=== PATIENT | female | born 1970 | race Two or more races ===

== ENCOUNTER → 2024-03-21 | Outpatient (CLI) | payer OTHER, MEDICAID, SELFPAY ==
--- NOTE | 2024-03-21 | XR_ITS ---
Examination: Foot, right, 3 views Technique: AP, oblique, lateral views foot, 3 views Date and time of exam: March 21, 2024 0828 hrs. Comparison January 11, 2024 Indications: Post foot surgery one year ago with pain and stiffness Findings: Satisfactory position prosthetic right first metatarsal head Fusion interphalangeal joint first digit again noted with orthopedic pin Prominent osteopenia No fracture Small plantar posterior bony calcaneal spurs Impression: Postsurgical changes with satisfactory alignment
[2024-03-21 08:14] LABS: Collection Type, Urine Clean Catch
[2024-03-21 08:33] LABS: Basophils # (Auto) 0.1 Thou/mm3 (0.0-0.2); Basophils % (Auto) 1 % (0-2.5); Eosinophils # (Auto) 0.2 Thou/mm3 (0.0-0.5); Eosinophils % (Auto) 1 % (0-10); Hematocrit 45.9 % (36.0-46.0); Hemoglobin 14.7 g/dL (12.0-16.0); Immature Granulocytes % (Auto) 0 % (0-0); Immature Granulocytes Auto 0.03 Thou/mm3 (0.00-0.00); Lymphocytes # (Auto) 5.2 Thou/mm3 (1.0-4.8); Lymphocytes % (Auto) 42 % (10-50); Mean Corpuscular Hemoglobin 30.2 pg (25.0-35.0); Mean Corpuscular Volume 94 fL (80-100); Monocytes # (Auto) 1.1 Thou/mm3 (0.0-0.8); Monocytes % (Auto) 9 % (0-12); Neutrophils # (Auto) 5.9 Thou/mm3 (1.8-7.7); Neutrophils % (Auto) 47 % (37-80); Nucleated Red Blood Cell % 0 /100 WBC (0); Platelet Count 304 Thou/mm3 (140-440); RDW Standard Deviation 47.8 fL (36.4-46.3); Red Blood Count 4.86 Miln/mm3 (4.00-5.20); White Blood Count 12.5 Thou/mm3 (3.6-11.0)
[2024-03-21 08:46] LABS: Bacteria,Urine 4+; Bilirubin,Urine Negative (Negative); Blood,Urine Trace (Negative); Color,Urine Yellow (Lt Yel-Yel); Glucose, Urine Negative (Negative); Ketones,Urine Negative (Negative); Leukocyte Esterase,Urine Positive (Negative); Nitrite,Urine Negative (Negative); Protein,Urine 1+ (Neg - Trace); RBC,Urine 13 /hpf (0-3); Specific Gravity,Urine 1.019 (1.001-1.035); Squamous Epithelial Cell,Urine 2 /hpf (0-5); Urobilinogen,Urine Negative mg/dL (0.0-1.0); WBC,Urine 229 /hpf (0-5)
[2024-03-21 08:59] LABS: Creatinine,Random Urine 164 mg/dL (30-125); Protein Total, Random Urine 35 mg/dL (1-14)
[2024-03-21 08:59] LABS: Alanine Aminotransferase 17 U/L (10-49); Albumin, Serum 4.4 gm/dL (3.5-5.0); Albumin/Globulin Ratio 1.8 (1.2-2.2); Alkaline Phosphatase 105 U/L (46-116); Anion Gap 7 (7-16); Aspartate Amino Transferase 15 U/L (0-34); BUN/Creatinine Ratio 16 Ratio (12-20); Bilirubin,Total 0.8 mg/dL (0.3-1.2); Blood Urea Nitrogen 14 mg/dL (9-23); Calcium 9.4 mg/dL (8.3-10.6); Calcium (Corrected) 9.4 mg/dL (8.5-10.1); Carbon Dioxide 30.6 mMol/L (20.0-31.0); Chloride 104 mMol/L (98-107); Creatinine (Component) 0.9 mg/dL (0.6-1.3); Globulin 2.5 gm/dL (2.3-3.5); Glucose 149 mg/dL (74-106); Magnesium 1.4 mg/dL (1.6-2.6); Osmolality,Calculated 286 (275-295); Phosphorous 4.1 mg/dL (2.4-5.1); Sodium 142 mMol/L (136-145); Total Protein 6.9 gm/dL (5.7-8.2); eGFR > 60 See Note
[2024-03-21 09:03] LABS: Clarity,Urine Hazy (Clear/Hazy); Culture Indicated,Urine Yes
[2024-03-23 22:05] LABS: BK Virus DNA,QN PCR,Urine NOT DETECTED copies/mL
[2024-03-25 06:59] LABS: BK Virus DNA,QN PCR,Urine NOT DETECTED Log cps/mL
[2024-03-26 19:52] LABS: CMV DNA, Qn Real Time PCR NOT DETECTED; CMV Specimen Source WHOLE BLOOD
[2024-03-27 06:23] LABS: CMV DNA, Qn PCR NOT DETECTED Log IU/mL; Tacrolimus,highly sensitive* 5.5 mcg/L (5.0-20.0)
== END | disposition home or self-care (01) ==
LOC: CDIM 06:58 → COPL 07:47
PROVIDERS: Podiatrist; PCP Internal Medicine; Referring Provider Specialist; Visit Provider Radiology Diagnostic Radiology
DX: Z48.89 Encounter for other specified surgical aftercare (principal); Z94.0 Kidney transplant status; B25.9 Cytomegaloviral disease, unspecified; E83.41 Hypermagnesemia; E83.39 Other disorders of phosphorus metabolism; R80.9 Proteinuria, unspecified; N39.0 Urinary tract infection, site not specified
CPT/HCPCS: 36415; 73630; 80053; 80197; 81001; 82570; 83735; 84100; 84156; 85025; 87086; 87497; 87799

== ENCOUNTER → 2024-04-22 | Outpatient (CLI) | payer OTHER, MEDICAID, SELFPAY ==
[2024-04-22 08:06] LABS: Collection Type, Urine Clean Catch
[2024-04-22 08:43] LABS: Amorphous Crystals,Urine Present (Absent); Bacteria,Urine Rare; Bilirubin,Urine Negative (Negative); Blood,Urine Negative (Negative); Color,Urine Lt-Yellow (Lt Yel-Yel); Glucose, Urine Negative (Negative); Hyaline Casts,Urine < 1 /hpf (0-1); Ketones,Urine Negative (Negative); Leukocyte Esterase,Urine Positive (Negative); Nitrite,Urine Negative (Negative); PH,Urine 6.5 (5.0-7.0); Protein,Urine Negative (Neg - Trace); RBC,Urine 6 /hpf (0-3); Specific Gravity,Urine 1.014 (1.001-1.035); Squamous Epithelial Cell,Urine 1 /hpf (0-5); Urobilinogen,Urine Negative mg/dL (0.0-1.0); WBC,Urine 25 /hpf (0-5)
[2024-04-22 08:49] LABS: Basophils # (Auto) 0.1 Thou/mm3 (0.0-0.2); Basophils % (Auto) 1 % (0-2.5); Eosinophils # (Auto) 0.2 Thou/mm3 (0.0-0.5); Eosinophils % (Auto) 1 % (0-10); Hematocrit 44.5 % (36.0-46.0); Hemoglobin 14.4 g/dL (12.0-16.0); Immature Granulocytes % (Auto) 0 % (0-0); Immature Granulocytes Auto 0.06 Thou/mm3 (0.00-0.00); Lymphocytes # (Auto) 6.4 Thou/mm3 (1.0-4.8); Lymphocytes % (Auto) 39 % (10-50); Mean Corpuscular HGB Conc 32.4 g/dl (31.0-37.0); Mean Corpuscular Hemoglobin 30.1 pg (25.0-35.0); Mean Corpuscular Volume 93 fL (80-100); Monocytes # (Auto) 1.3 Thou/mm3 (0.0-0.8); Monocytes % (Auto) 8 % (0-12); Neutrophils # (Auto) 8.3 Thou/mm3 (1.8-7.7); Neutrophils % (Auto) 51 % (37-80); Nucleated Red Blood Cell # 0.02 Thou/mm3 (0.00-0.00); Nucleated Red Blood Cell % 0 /100 WBC (0); Platelet Count 286 Thou/mm3 (140-440); RDW Standard Deviation 46.8 fL (36.4-46.3); Red Blood Count 4.78 Miln/mm3 (4.00-5.20); White Blood Count 16.3 Thou/mm3 (3.6-11.0)
[2024-04-22 08:50] LABS: Clarity,Urine Hazy (Clear/Hazy); Culture Indicated,Urine Yes
[2024-04-22 09:06] LABS: Creatinine,Random Urine 81 mg/dL (30-125); Protein Total, Random Urine 19 mg/dL (1-14)
[2024-04-22 09:07] LABS: Alanine Aminotransferase 14 U/L (10-49); Albumin, Serum 4.4 gm/dL (3.5-5.0); Albumin/Globulin Ratio 1.8 (1.2-2.2); Alkaline Phosphatase 111 U/L (46-116); Anion Gap 11 (7-16); Aspartate Amino Transferase 14 U/L (0-34); BUN/Creatinine Ratio 13 Ratio (12-20); Bilirubin,Total 0.7 mg/dL (0.3-1.2); Blood Urea Nitrogen 12 mg/dL (9-23); Carbon Dioxide 30.7 mMol/L (20.0-31.0); Chloride 103 mMol/L (98-107); Creatinine (Component) 0.9 mg/dL (0.6-1.3); Globulin 2.5 gm/dL (2.3-3.5); Glucose 148 mg/dL (74-106); Magnesium 1.4 mg/dL (1.6-2.6); Osmolality,Calculated 291 (275-295); Phosphorous 5.1 mg/dL (2.4-5.1); Potassium 3.7 mMol/L (3.4-5.1); Sodium 145 mMol/L (136-145); Total Protein 6.9 gm/dL (5.7-8.2); eGFR > 60 See Note
[2024-04-24 13:49] LABS: BK Virus DNA,QN PCR,Urine NOT DETECTED copies/mL
[2024-04-25 06:55] LABS: BK Virus DNA,QN PCR,Urine NOT DETECTED Log cps/mL
[2024-04-27 22:08] LABS: CMV DNA, Qn Real Time PCR NOT DETECTED; CMV Specimen Source BLOOD
[2024-04-29 06:59] LABS: CMV DNA, Qn PCR NOT DETECTED Log IU/mL
== END | disposition home or self-care (01) ==
LOC: COPL 06:49
PROVIDERS: PCP Internal Medicine; Referring Provider Specialist; Visit Provider Specialist
DX: Z94.0 Kidney transplant status (principal); B25.9 Cytomegaloviral disease, unspecified; E83.41 Hypermagnesemia; E83.39 Other disorders of phosphorus metabolism; R80.9 Proteinuria, unspecified; N39.0 Urinary tract infection, site not specified
CPT/HCPCS: 36415; 80053; 80197; 81001; 82570; 83735; 84100; 84156; 85025; 87086; 87497; 87799

== ENCOUNTER → 2024-05-10 | Outpatient (CLI) | payer OTHER, MEDICAID, SELFPAY ==
[2024-05-10 08:19] LABS: Collection Type, Urine Clean Catch
[2024-05-10 08:54] LABS: Amorphous Crystals,Urine Present (Absent); Bacteria,Urine 1+; Bilirubin,Urine Negative (Negative); Blood,Urine Negative (Negative); Clarity,Urine Turbid (Clear/Hazy); Color,Urine Lt-Yellow (Lt Yel-Yel); Glucose, Urine Negative (Negative); Ketones,Urine Negative (Negative); Leukocyte Esterase,Urine Positive (Negative); Nitrite,Urine Negative (Negative); Protein,Urine Negative (Neg - Trace); RBC,Urine 5 /hpf (0-3); Specific Gravity,Urine 1.011 (1.001-1.035); Squamous Epithelial Cell,Urine 2 /hpf (0-5); Urobilinogen,Urine Negative mg/dL (0.0-1.0); WBC,Urine 54 /hpf (0-5)
[2024-05-10 09:01] LABS: Culture Indicated,Urine Yes
[2024-05-10 09:06] LABS: Basophils # (Auto) 0.1 Thou/mm3 (0.0-0.2); Basophils % (Auto) 1 % (0-2.5); Eosinophils # (Auto) 0.3 Thou/mm3 (0.0-0.5); Eosinophils % (Auto) 2 % (0-10); Hematocrit 43.8 % (36.0-46.0); Hemoglobin 14.1 g/dL (12.0-16.0); Immature Granulocytes % (Auto) 0 % (0-0); Immature Granulocytes Auto 0.05 Thou/mm3 (0.00-0.00); Lymphocytes # (Auto) 5.3 Thou/mm3 (1.0-4.8); Lymphocytes % (Auto) 37 % (10-50); Mean Corpuscular HGB Conc 32.2 g/dl (31.0-37.0); Mean Corpuscular Hemoglobin 30.4 pg (25.0-35.0); Mean Corpuscular Volume 94 fL (80-100); Monocytes # (Auto) 1.2 Thou/mm3 (0.0-0.8); Monocytes % (Auto) 8 % (0-12); Neutrophils # (Auto) 7.6 Thou/mm3 (1.8-7.7); Neutrophils % (Auto) 53 % (37-80); Nucleated Red Blood Cell % 0 /100 WBC (0); Platelet Count 281 Thou/mm3 (140-440); RDW Standard Deviation 48.2 fL (36.4-46.3); Red Blood Count 4.64 Miln/mm3 (4.00-5.20); White Blood Count 14.5 Thou/mm3 (3.6-11.0)
[2024-05-10 09:22] LABS: Creatinine,Random Urine 51 mg/dL (30-125); Protein Total, Random Urine 13 mg/dL (1-14)
[2024-05-10 09:31] LABS: Alanine Aminotransferase 15 U/L (10-49); Albumin, Serum 4.1 gm/dL (3.5-5.0); Albumin/Globulin Ratio 1.5 (1.2-2.2); Alkaline Phosphatase 95 U/L (46-116); Anion Gap 9 (7-16); Aspartate Amino Transferase 17 U/L (0-34); BUN/Creatinine Ratio 13 Ratio (12-20); Blood Urea Nitrogen 12 mg/dL (9-23); Calcium 8.9 mg/dL (8.3-10.6); Calcium (Corrected) 8.9 mg/dL (8.5-10.1); Carbon Dioxide 30.6 mMol/L (20.0-31.0); Chloride 105 mMol/L (98-107); Creatinine (Component) 0.9 mg/dL (0.6-1.3); Globulin 2.7 gm/dL (2.3-3.5); Glucose 139 mg/dL (74-106); Magnesium 1.4 mg/dL (1.6-2.6); Osmolality,Calculated 290 (275-295); Phosphorous 4.6 mg/dL (2.4-5.1); Potassium 4.2 mMol/L (3.4-5.1); Sodium 145 mMol/L (136-145); Total Protein 6.8 gm/dL (5.7-8.2); eGFR > 60 See Note
[2024-05-13 07:05] LABS: BK Virus DNA,QN PCR,Urine NOT DETECTED copies/mL
[2024-05-14 07:08] LABS: BK Virus DNA,QN PCR,Urine NOT DETECTED Log cps/mL
[2024-05-15 07:05] LABS: CMV DNA, Qn Real Time PCR NOT DETECTED; CMV Specimen Source WHOLE BLOOD LAV
[2024-05-16 07:00] LABS: CMV DNA, Qn PCR NOT DETECTED Log IU/mL; Tacrolimus,highly sensitive* 3.5 mcg/L (5.0-20.0)
== END | disposition home or self-care (01) ==
LOC: COPL 07:08
PROVIDERS: PCP Internal Medicine; Referring Provider Specialist; Visit Provider Specialist
DX: N39.0 Urinary tract infection, site not specified (principal); R80.9 Proteinuria, unspecified; Z94.0 Kidney transplant status; B25.9 Cytomegaloviral disease, unspecified; E83.41 Hypermagnesemia; E83.39 Other disorders of phosphorus metabolism
CPT/HCPCS: 36415; 80053; 80197; 81001; 82570; 83735; 84100; 84156; 85025; 87086; 87497; 87799

== ENCOUNTER → 2024-05-30 | Outpatient (CLI) | payer OTHER, MEDICAID, SELFPAY ==
--- NOTE | 2024-05-30 | XR_ITS ---
Examination: Foot, right, 3 views Technique: AP, oblique, lateral views foot, 3 views Date and time of exam: May 30, 2024 0729 hrs. Comparison March 21, 2024 Indications: Foot pain post foot surgery 2 years ago Findings: Severe osteopenia Prosthetic right first metatarsal head Fusion interphalangeal joint first digit with orthopedic and No colton cortical bone destruction Small plantar posterior bony calcaneal spurs Soft tissue vascular calcification Impression: Postoperative changes as above No acute fracture No colton cortical bone destruction
== END | disposition home or self-care (01) ==
LOC: CDIM 06:46
PROVIDERS: Referring Provider Podiatrist; Visit Provider Podiatrist
DX: M96.0 Pseudarthrosis after fusion or arthrodesis (principal)
CPT/HCPCS: 73630

== ENCOUNTER → 2024-06-03 | Outpatient (CLI) | payer OTHER, MEDICAID, SELFPAY ==
--- NOTE | 2024-06-03 10:27 | XR_ITS ---
Examination: Screening digital mammography, bilateral Computer aided detection 3-D breast Tomosynthesis, bilateral Date and time of exam: 06/03/2024, 10:31 AM Comparisons: 05/03/2023 Indications: Screening Technique: Nonmagnified MLO, CC views of the breasts to been obtained, reconstructed from 3-D Tomosynthesis images. R2 computer aided detection program utilized for evaluation of suspicious masses and/or abnormal calcifications. 3-D Tomosynthesis images obtained. Technologist: Findings: There are scattered areas of fibroglandular density. No evidence of abnormal masses or suspicious calcifications. Stable left axillary clips. Impression: BI-RADS category 2: Benign findings Recommend 1 year follow-up mammogram
== END | disposition home or self-care (01) ==
LOC: CDIM 10:22
PROVIDERS: PCP Internal Medicine; Referring Provider Internal Medicine; Visit Provider Internal Medicine
DX: Z12.31 Encounter for screening mammogram for malignant neoplasm of breast (principal); R92.323 Mammographic fibroglandular density, bilateral breasts
CPT/HCPCS: 77063; 77067

== ENCOUNTER → 2024-06-04 | Outpatient (CLI) | payer OTHER, MEDICAID, SELFPAY ==
[2024-06-04 07:59] LABS: Collection Type, Urine Clean Catch; RBC,Urine 0 /hpf (0-3)
[2024-06-04 08:37] LABS: Bacteria,Urine Rare; Bilirubin,Urine Negative (Negative); Blood,Urine Negative (Negative); Clarity,Urine Clear (Clear/Hazy); Color,Urine Lt-Yellow (Lt Yel-Yel); Glucose, Urine Negative (Negative); Ketones,Urine Negative (Negative); Leukocyte Esterase,Urine Positive (Negative); Nitrite,Urine Negative (Negative); Protein,Urine Negative (Neg - Trace); Specific Gravity,Urine 1.013 (1.001-1.035); Squamous Epithelial Cell,Urine 1 /hpf (0-5); Urobilinogen,Urine Negative mg/dL (0.0-1.0); WBC,Urine 76 /hpf (0-5)
[2024-06-04 08:39] LABS: Basophils # (Auto) 0.1 Thou/mm3 (0.0-0.2); Basophils % (Auto) 1 % (0-2.5); Eosinophils # (Auto) 0.3 Thou/mm3 (0.0-0.5); Eosinophils % (Auto) 2 % (0-10); Hematocrit 41.3 % (36.0-46.0); Hemoglobin 13.4 g/dL (12.0-16.0); Immature Granulocytes % (Auto) 0 % (0-0); Immature Granulocytes Auto 0.04 Thou/mm3 (0.00-0.00); Lymphocytes # (Auto) 6.1 Thou/mm3 (1.0-4.8); Lymphocytes % (Auto) 43 % (10-50); Mean Corpuscular HGB Conc 32.4 g/dl (31.0-37.0); Mean Corpuscular Hemoglobin 30.4 pg (25.0-35.0); Mean Corpuscular Volume 94 fL (80-100); Monocytes # (Auto) 1.2 Thou/mm3 (0.0-0.8); Monocytes % (Auto) 9 % (0-12); Neutrophils # (Auto) 6.5 Thou/mm3 (1.8-7.7); Neutrophils % (Auto) 46 % (37-80); Nucleated Red Blood Cell % 0 /100 WBC (0); Platelet Count 309 Thou/mm3 (140-440); Red Blood Count 4.41 Miln/mm3 (4.00-5.20); White Blood Count 14.1 Thou/mm3 (3.6-11.0)
[2024-06-04 08:44] LABS: Creatinine,Random Urine 50 mg/dL (30-125); Protein Total, Random Urine 19 mg/dL (1-14)
[2024-06-04 09:06] LABS: Culture Indicated,Urine Yes
[2024-06-04 09:07] LABS: Alanine Aminotransferase 12 U/L (10-49); Albumin/Globulin Ratio 1.7 (1.2-2.2); Anion Gap 10 (7-16); Aspartate Amino Transferase 14 U/L (0-34); BUN/Creatinine Ratio 15 Ratio (12-20); Bilirubin,Total 0.7 mg/dL (0.3-1.2); Blood Urea Nitrogen 12 mg/dL (9-23); Calcium 8.3 mg/dL (8.3-10.6); Calcium (Corrected) 8.3 mg/dL (8.5-10.1); Carbon Dioxide 30.5 mMol/L (20.0-31.0); Chloride 105 mMol/L (98-107); Creatinine (Component) 0.8 mg/dL (0.6-1.3); Globulin 2.4 gm/dL (2.3-3.5); Glucose 158 mg/dL (74-106); Magnesium 1.4 mg/dL (1.6-2.6); Osmolality,Calculated 291 (275-295); Phosphorous 4.4 mg/dL (2.4-5.1); Potassium 3.7 mMol/L (3.4-5.1); Sodium 145 mMol/L (136-145); Total Protein 6.4 gm/dL (5.7-8.2); eGFR > 60 See Note
[2024-06-04 09:25] LABS: Alkaline Phosphatase 98 U/L (46-116)
[2024-06-06 19:50] LABS: BK Virus DNA,QN PCR,Urine NOT DETECTED copies/mL
[2024-06-07 06:26] LABS: BK Virus DNA,QN PCR,Urine NOT DETECTED Log cps/mL
[2024-06-10 15:35] LABS: CMV DNA, Qn Real Time PCR NOT DETECTED; CMV Specimen Source WOLE BLOOD LAV
[2024-06-11 06:37] LABS: CMV DNA, Qn PCR NOT DETECTED Log IU/mL; Tacrolimus,highly sensitive* 3.5 mcg/L (5.0-20.0)
== END | disposition home or self-care (01) ==
LOC: COPL 07:02
PROVIDERS: PCP Internal Medicine; Referring Provider Specialist; Visit Provider Specialist
DX: B25.9 Cytomegaloviral disease, unspecified (principal); E83.41 Hypermagnesemia; E83.39 Other disorders of phosphorus metabolism; Z94.0 Kidney transplant status; R80.9 Proteinuria, unspecified; N39.0 Urinary tract infection, site not specified
CPT/HCPCS: 36415; 80053; 80197; 81001; 82570; 83735; 84100; 84156; 85025; 87086; 87497; 87799

== ENCOUNTER → 2024-06-13 | Outpatient (CLI) | payer OTHER, MEDICAID, SELFPAY ==
[2024-06-13 08:26] LABS: Collection Type, Urine Clean Catch
[2024-06-13 08:57] LABS: Basophils # (Auto) 0.1 Thou/mm3 (0.0-0.2); Basophils % (Auto) 1 % (0-2.5); Eosinophils # (Auto) 0.3 Thou/mm3 (0.0-0.5); Eosinophils % (Auto) 2 % (0-10); Hematocrit 43.3 % (36.0-46.0); Immature Granulocytes % (Auto) 0 % (0-0); Immature Granulocytes Auto 0.07 Thou/mm3 (0.00-0.00); Lymphocytes % (Auto) 44 % (10-50); Mean Corpuscular HGB Conc 32.3 g/dl (31.0-37.0); Mean Corpuscular Hemoglobin 30.2 pg (25.0-35.0); Mean Corpuscular Volume 94 fL (80-100); Monocytes # (Auto) 1.4 Thou/mm3 (0.0-0.8); Monocytes % (Auto) 8 % (0-12); Neutrophils # (Auto) 7.8 Thou/mm3 (1.8-7.7); Neutrophils % (Auto) 46 % (37-80); Nucleated Red Blood Cell % 0 /100 WBC (0); Platelet Count 323 Thou/mm3 (140-440); RDW Standard Deviation 48.1 fL (36.4-46.3); Red Blood Count 4.63 Miln/mm3 (4.00-5.20); White Blood Count 17.1 Thou/mm3 (3.6-11.0)
[2024-06-13 08:57] LABS: Bacteria,Urine 2+; Bilirubin,Urine Negative (Negative); Blood,Urine Trace (Negative); Color,Urine Yellow (Lt Yel-Yel); Glucose, Urine Negative (Negative); Ketones,Urine Negative (Negative); Leukocyte Esterase,Urine Positive (Negative); Nitrite,Urine Negative (Negative); Protein,Urine Trace (Neg - Trace); RBC,Urine 13 /hpf (0-3); Specific Gravity,Urine 1.019 (1.001-1.035); Squamous Epithelial Cell,Urine 7 /hpf (0-5); Urobilinogen,Urine Negative mg/dL (0.0-1.0); WBC,Urine 411 /hpf (0-5)
[2024-06-13 09:11] LABS: Alanine Aminotransferase 11 U/L (10-49); Albumin, Serum 4.2 gm/dL (3.5-5.0); Albumin/Globulin Ratio 1.7 (1.2-2.2); Alkaline Phosphatase 103 U/L (46-116); Anion Gap 10 (7-16); Aspartate Amino Transferase 11 U/L (0-34); BUN/Creatinine Ratio 18 Ratio (12-20); Bilirubin,Total 0.9 mg/dL (0.3-1.2); Blood Urea Nitrogen 14 mg/dL (9-23); Carbon Dioxide 29.7 mMol/L (20.0-31.0); Chloride 105 mMol/L (98-107); Creatinine (Component) 0.8 mg/dL (0.6-1.3); Globulin 2.5 gm/dL (2.3-3.5); Glucose 165 mg/dL (74-106); Magnesium 1.4 mg/dL (1.6-2.6); Osmolality,Calculated 293 (275-295); Phosphorous 3.8 mg/dL (2.4-5.1); Potassium 3.4 mMol/L (3.4-5.1); Sodium 145 mMol/L (136-145); Total Protein 6.7 gm/dL (5.7-8.2); eGFR > 60 See Note
[2024-06-13 09:12] LABS: Creatinine,Random Urine 113 mg/dL (30-125); Protein Total, Random Urine 27 mg/dL (1-14)
[2024-06-13 09:31] LABS: Clarity,Urine Hazy (Clear/Hazy); Culture Indicated,Urine Yes
[2024-06-13 12:13] LABS: Lymphocytes # (Auto) 7.5 Thou/mm3 (1.0-4.8)
[2024-06-16 07:04] LABS: BK Virus DNA,QN PCR,Urine NOT DETECTED copies/mL
[2024-06-17 07:05] LABS: BK Virus DNA,QN PCR,Urine NOT DETECTED Log cps/mL
[2024-06-18 08:48] LABS: CMV DNA, Qn Real Time PCR NOT DETECTED; CMV Specimen Source WHOLE BLOOD
[2024-06-19 06:45] LABS: CMV DNA, Qn PCR NOT DETECTED Log IU/mL; Tacrolimus,highly sensitive* 4.8 mcg/L (5.0-20.0)
== END | disposition home or self-care (01) ==
LOC: COPL 07:05
PROVIDERS: Referring Provider Specialist; Visit Provider Specialist
DX: E83.41 Hypermagnesemia (principal); E83.39 Other disorders of phosphorus metabolism; B25.9 Cytomegaloviral disease, unspecified; R80.9 Proteinuria, unspecified; N39.0 Urinary tract infection, site not specified; Z94.0 Kidney transplant status
CPT/HCPCS: 36415; 80053; 80197; 81001; 82570; 83735; 84100; 84156; 85025; 87086; 87497; 87799

== ENCOUNTER → 2024-06-25 | Outpatient (CLI) | payer OTHER, MEDICAID, SELFPAY ==
--- NOTE | 2024-06-25 | XR_ITS ---
Examination: Knee bilateral, 6 views Technique: Knee AP, lateral, oblique, each knee total 6 views Date and time of exam: June 26, 2019 5071 hrs. Indications: Bilateral knee pain beginning 3 weeks ago. Findings: Moderate osteopenia No fracture or dislocation involving either knee Bilateral mild tricompartment osteoarthritis Meniscus calcification Impression: Bilateral mild tricompartment osteoarthritis
== END | disposition home or self-care (01) ==
PROVIDERS: PCP Internal Medicine; Referring Provider Internal Medicine; Visit Provider Internal Medicine
DX: M17.0 Bilateral primary osteoarthritis of knee (principal)
CPT/HCPCS: 73562

== ENCOUNTER 2024-08-08 09:18 | Outpatient (AMB) | payer OTHER, MEDICAID, SELFPAY ==
--- NOTE | 2024-08-08 09:31 | XR_ITS ---
Examination: Bilateral knees 2 views Right lateral knee left lateral knee 2 views Bilateral axial knees single view TECHNIQUE: Bilateral AP knees standing single view, bilateral PA knees standing single view flexion Standing right lateral knee left lateral knee 2 views Bilateral axial knees single view total 5 views Exam date and time: August 08, 2024 1007 hours INDICATIONS: Bilateral knee pain 2 years worse the last 2 months FINDINGS: Prominent osteopenia Mild to moderate narrowing medial joint spaces Mild osteoarthritis patellofemoral joints No fractures or dislocations IMPRESSION: Mild to moderate narrowing medial joint spaces Mild osteoarthritis patellofemoral joint
[2024-08-08 09:32] VITALS: BP 142/95; PULSE 88; RESP 18; TEMP 36.7; O2SAT 97; BMI 30.4
--- NOTE | 2024-08-08 09:32 | ORTHONT_ITS ---
Vital signs 08/08/24 09:32 Height 1.57 m Height Method Stated Weight 74.984 kg Weight Measurement Method Standing Scale BMI 30.4 BP 142/95 H Blood Pressure Source Automatic Cuff Blood Pressure Location Left Upper Arm Position Sitting Respiration 18 Pulse 88 Pulse Source Monitor Temp 98.0 F Temp Source Temporal Artery Scan Pulse Oximetry (%) 97 Oxygen Delivery Method Room Air Med/Allergies Allergies & Medications Allergies codeine Allergy (Severe, Verified 08/08/24 09:34) DIFF BREATHING hydrocodone bit Allergy (Severe, Verified 08/08/24 09:34) Rash Penicillins Allergy (Intermediate, Verified 08/08/24 09:34) HIVES, RASH vancomycin Allergy (Intermediate, Verified 08/08/24 09:34) Hives promethazine (From Phenergan) Allergy (Verified 08/08/24 09:34) ibuprofen Adverse Reaction (Intermediate, Verified 08/08/24 09:34) KIDNEY FAILURE Medication Reconciliation glipizide 5 mg tablet 5 mg PO QID 11/10/20 [History Confirmed 08/08/24] aspirin 81 mg tablet 81 mg PO QDAY 08/18/21 [History Confirmed 08/08/24] atorvastatin 40 mg tablet (Lipitor) 1 tab PO HS 08/18/21 [History Confirmed 08/08/24] cinacalcet 30 mg tablet (Sensipar) 1 tab PO QDAY 08/18/21 [History Confirmed 08/08/24] clonidine 0.3 mg/24 hr weekly transdermal patch See Rx Instructions .Route .COMPLEX 08/18/21 [History Confirmed 08/08/24] clonidine HCl 0.3 mg tablet 1 tab PO HS 08/18/21 [History Confirmed 08/08/24] insulin aspart U-100 100 unit/mL (3 mL) subcutaneous pen (Novolog FlexPen U-100 Insulin aspart) 14 unit subcut TID 08/18/21 [History Confirmed 08/08/24] insulin glargine 100 unit/mL (3 mL) subcutaneous pen (Lantus Solostar U-100 Insulin) See Rx Instructions .Route .COMPLEX 08/18/21 [History Confirmed 08/08/24] linaclotide 290 mcg capsule (Linzess) 1 cap PO QDAY PRN Constipation 08/18/21 [History Confirmed 08/08/24] mycophenolate sodium 180 mg tablet,delayed release (Myfortic) 1 tab PO BID 08/18/21 [History Confirmed 08/08/24] pantoprazole 40 mg granules delayed-release for susp in packet (Protonix) 40 mg PO HS 08/18/21 [History Confirmed 08/08/24] prednisone 5 mg tablet 1 tab PO QDAY 08/18/21 [History Confirmed 08/08/24] tacrolimus 0.5 mg capsule, immediate-release (Prograf) 5 mg PO BID 08/18/21 [History Confirmed 08/08/24] amlodipine 5 mg tablet 5 mg PO QDAY 02/22/22 [History Confirmed 08/08/24] carvedilol 25 mg tablet 25 mg PO DAILY PRN Hypertension 02/22/22 [History Confirmed 08/08/24] docusate sodium 100 mg capsule (Colace) 100 mg PO BID #60 caps 09/02/22 [Rx Confirmed 08/08/24] psyllium husk 3.4 gram oral powder packet (Metamucil Fiber Singles) 1 packet PO BID #60 ea 09/02/22 [Rx Confirmed 08/08/24] Exam Exam Patient is in no acute distress and is cooperative with the examination today. Breathing is nonlabored. Patient has a normal mood and affect. Bilateral extremities were evaluated and demonstrates sensation intact to light touch. Palpable pedal pulses are present. No significant edema is present. Bilateral hips were examined. The patient has no pain with log roll of the hips. Internal rotation to 30 degrees and external rotation to 30 degrees is painless. Negative FADIR. Right knee was examined today. The right knee is in reasonable alignment. Range of motion from 0-120 degrees. Knee is stable to varus and valgus as well as AP translation with <5mm. Patient has a negative McMurrays. There is no pain with patellofemoral compression and no crepitus noted. The knee is nontender to palpation. Left knee was examined today. The left knee is in varus alignment. Range of motion from 0-115 degrees. Knee is stable to varus and valgus as well as AP translation with <5mm. Patient has a negative McMurrays. There is no pain with patellofemoral compression and no crepitus noted. The knee is tender to palpation medially. Nonweightbearing x-rays demonstrates mild arthritis and joint space narrowing bilaterally Assessment and Plan Problem List (1) Degenerative arthritis of knee, bilateral: Status: Acute Plan: Patient is a pleasant 54-year-old female with bilateral knee pain and bilateral knee arthritis. We discussed different treatment options. She would like a cortisone injection today Recommend knee cortisone injection as patient would like to proceed with conservative treatment at this time. The risks and benefits of the procedure were reviewed with the patient and patient gave verbal consent to continue with the procedure. Procedure: performed by Dr. Francis Using sterile technique the left knee was thoroughly prepped with alcohol, and approximately 1 cc of Kenalog 40 mg/mL and 4 cc of 1% lidocaine was injected without resistance into the medial tibial femoral joint space. The patient tolerated the procedure. Recommend knee cortisone injection as patient would like to proceed with conservative treatment at this time. The risks and benefits of the procedure were reviewed with the patient and patient gave verbal consent to continue with the procedure. Procedure: performed by Dr. Francis Using sterile technique the Right knee was thoroughly prepped with alcohol, and approximately 1 cc of Kenalog 40 mg/mL and 4 cc of 1% lidocaine was injected without resistance into the medial tibial femoral joint space. The patient to lerated the procedure. Office Procedures GNS Level of Care Nursing/Assessment Patient Status: Initial/New Patient Nursing Assessment/Reassesment: Medication Reconciliation, Update PMH in EMR and Vital Signs Coordination of Care: Complex Care and Chronic Disease 1-5, Education Complex Pt/Fam, Consent,records obtained, informed consent, 1 Ins Authorization, Lab and Imaging orders, Results/Orders obtained and Staff clarify orders New Patient Charge New Patient Point Assignment: 1124 New Patient Point Charge: CREPE MAKER Level 4 ([id number]) Surgical Proc/IM SQ injection Major Surgical Procedure: Yes (BILATERAL KNEE INJECTION) Medication Given Medication Given Medication Given: Yes Documented Dose Given: 4 Medication Given Medication Given Medication Given: Yes Documented Dose Given: 4 Route: Infiitration Medication Given Medication Given Medication Given: Yes Documented Dose Given: 1 Route: Infiitration Medication Given Medication Given Medication Given: Yes Documented Dose Given: 1 Route: Infiitration Office Meds Xylocaine 10 mg/mL (1 %) injection solution Performing Provider: Christopher Francis MD Performing Location: [facility] Administered by: Christopher Francis MD on 08/08/24 10:59 Dose Route Admin Location Dispensed Lot Number Expiration Date [facility] Continuous Loft Operator 20 mL Infiltration 20 mL [id number] 10/08/27 05118-649-44 [employer] Xylocaine 10 mg/mL (1 %) injection solution Performing Provider: Chritsopher Francis MD Performing Location: [facility] Administered by: Christopher Francis MD on 08/08/24 10:59 Dose Route Admin Location Dispensed Lot Number Expiration Date [facility] Continuous Loft Operator 20 mL Infiltration 20 mL [id number] 11/06/26 11536-526-31 [employer]ABI triamcinolone acetonide 40 mg/mL suspension for injection Performing Provider: Christopher Francis MD Performing Location: [facility] Administered by: Christopher Francis MD on 08/08/24 10:59 Dose Route Admin Location Dispensed Lot Number Expiration Date [facility] Continuous Loft Operator 40 mg intra-articular KNEE 1 mL [id number] 02/06/26 2995-2477-67 TE MD PARENTERAL triamcinolone acetonide 40 mg/mL suspension for injection Performing Provider: Christopher Francis MD Performing Location: [facility] Administered by: Christopher Francis MD on 08/08/24 10:59 Dose Route Admin Location Dispensed Lot Number Expiration Date [facility] Continuous Loft Operator 40 mg intra-articular KNEE 1 mL [id number] 11/06/25 [address]-0 Tyrone ROMAN MA Intake Visit Data Collection New Patient or Established: New Patient (never been to [facility] [place] Reason for Visit:: BL KNEE PAIN Seen by Clinical Staff ONLY (RN/MA): No PCP or OBGYN visit in last 3 months: Yes Hx Now: No Do You Feel Safe at Home: Yes Authorities Contacted: N/A Questionairres Past Medical History Past Medical History Have you ever been diagnosed with any of the following: Neurological Problems Cerebrovascular Accident (CVA): Yes Seizures: No Subdural Hematoma: Yes Head Trauma: Yes Cardiology Problems Hypercholesterolemia: Yes Congestive Heart Failure: Yes Edema: No Cellulitis: No Hypertension: Yes Varicose Veins: No Respiratory Problems Chronic Obstructive Pulmonary Disease (COPD): No Asthma: No Tuberculosis: No Pulmonary Embolism: No Sleep Apnea: No Smoking: No Smoking Exposure: No Stomache/Intestinal Problems Hepatitis: No Obesity: Yes Genital/Urinary Problems Renal Disease: Yes (HAD KIDNEY TRANSPLANT) Dialysis: Yes Reproductive Problems Previous Pregnancies: Yes Musculoskeletal Problems Arthritis: Yes Endocrine Problems Diabetes Mellitus Type 1: No Diabetes Mellitus Type 2: Yes Blood Problems Sickle Cell Disease: No Clotting Problems: Yes (BLOOD CLOTS RIGHT LEG HOSP 08/29) Other Problems Hospitalization: Yes Shingles: No Falls: No Blood Transfusions: No Blood Transfusion Reaction: No Anesthesia Reactions: No Organ Transplant: Yes Chemotherapy: No Radiation Therapy: No MRSA: No Chicken Pox: Yes Measles: No Mumps: No Cancer: No Surgical History Hysterectomy: Yes (GENA WITH LUI SALPING) Pacemaker: No Subjective Visit Visit for: new patient and knee (BILATERAL) Immunization / Flu Flu Vaccine in the Last 12 Months: No Flu Vaccine Exclusion Criteria: No Exclusion Criteria History of Present Illness Chief complaint: Left knee pain Patient is a 54-year-old female with bilateral knee pain worse on the left. This been ongoing for 2 years but has been worse in the last 2 months. She does have a history of a kidney transplant and is on immunosuppressants. She reports the left knee pain is worse and is starting to affect her. She has not had any injections. She can only take Tylenol because of the transplant Pain Pain level (0-10): 8 Pain duration: CONSTANT Pain location: inside (medial), outside (lateral), anterior and posterior Pain quality: sharp, dull and aching Pain timing: increases with activity Ambulatory data Ambulatory device: none Treatments Number of previous injections: 0 Improvement with previous injections: No Number of Physical Therapy sessions: 0 Improvement with PT: No Improvement with NSAIDS: no Review of Systems Review of Systems: All systems negative unless otherwise noted in HPI.
== END 2024-08-08 10:12 | disposition home or self-care (01) ==
LOC: HODSRG 09:18
PROVIDERS: PCP Internal Medicine; Referring Provider Internal Medicine; Supervising Provider Orthopaedic Surgery Adult Reconstructive Orthopaedic Surgery; Visit Provider Orthopaedic Surgery Adult Reconstructive Orthopaedic Surgery
DX: M17.0 Bilateral primary osteoarthritis of knee (principal); M25.562 Pain in left knee; M25.561 Pain in right knee; I11.0 Hypertensive heart disease with heart failure; I50.9 Heart failure, unspecified; E78.00 Pure hypercholesterolemia, unspecified; Z86.73 Personal history of transient ischemic attack (TIA), and cerebral infarction without residual deficits; E11.9 Type 2 diabetes mellitus without complications; Z94.0 Kidney transplant status
CPT/HCPCS: 20610; 73564; 99204; J3301; J3490; G0463

== ENCOUNTER → 2024-09-04 | Outpatient (CLI) | payer OTHER, MEDICAID, SELFPAY ==
--- NOTE | 2024-09-04 | XR_ITS ---
Examination: Foot, I, 3 views Technique: AP, oblique, lateral views foot, 3 views Date and time of exam: August 27, 2024 0803 hours INDICATIONS: Postop foot surgery FINDINGS: Prosthetic first metatarsal head with satisfactory alignment Fusion interphalangeal joint first digit with satisfactory alignment Moderate osteopenia IMPRESSION: Postsurgical changes as above with satisfactory alignment
[2024-09-04 08:03] LABS: Collection Type, Urine Clean Catch
[2024-09-04 08:31] LABS: Basophils # (Auto) 0.1 Thou/mm3 (0.0-0.2); Basophils % (Auto) 1 % (0-2.5); Eosinophils # (Auto) 0.2 Thou/mm3 (0.0-0.5); Eosinophils % (Auto) 1 % (0-10); Hematocrit 44.4 % (36.0-46.0); Hemoglobin 14.3 g/dL (12.0-16.0); Immature Granulocytes % (Auto) 0 % (0-0); Immature Granulocytes Auto 0.04 Thou/mm3 (0.00-0.00); Lymphocytes # (Auto) 5.4 Thou/mm3 (1.0-4.8); Lymphocytes % (Auto) 39 % (10-50); Mean Corpuscular HGB Conc 32.2 g/dl (31.0-37.0); Mean Corpuscular Hemoglobin 30.6 pg (25.0-35.0); Mean Corpuscular Volume 95 fL (80-100); Monocytes % (Auto) 7 % (0-12); Neutrophils # (Auto) 7.3 Thou/mm3 (1.8-7.7); Neutrophils % (Auto) 52 % (37-80); Nucleated Red Blood Cell % 0 /100 WBC (0); Platelet Count 293 Thou/mm3 (140-440); RDW Standard Deviation 50.1 fL (36.4-46.3); Red Blood Count 4.67 Miln/mm3 (4.00-5.20)
[2024-09-04 08:40] LABS: Creatinine,Random Urine 95 mg/dL (30-125)
[2024-09-04 08:40] LABS: Glucose Estimated Average 148 mg/dL (80-131); Hemoglobin A1C 6.8 % Hgb (4.8-6.0)
[2024-09-04 08:46] LABS: Parathyroid Hormone Intact 114.7 pg/ml (18.5-88.0)
[2024-09-04 08:49] LABS: Bacteria,Urine 2+; Bilirubin,Urine Negative (Negative); Blood,Urine Negative (Negative); Color,Urine Lt-Yellow (Lt Yel-Yel); Glucose, Urine Negative (Negative); Hyaline Casts,Urine < 1 /hpf (0-1); Ketones,Urine Negative (Negative); Leukocyte Esterase,Urine Positive (Negative); Nitrite,Urine Negative (Negative); PH,Urine 6.5 (5.0-7.0); Protein,Urine Trace (Neg - Trace); RBC,Urine 5 /hpf (0-3); Specific Gravity,Urine 1.017 (1.001-1.035); Squamous Epithelial Cell,Urine 1 /hpf (0-5); Urobilinogen,Urine Negative mg/dL (0.0-1.0); WBC,Urine 72 /hpf (0-5)
[2024-09-04 08:52] LABS: Vitamin B12 1626 pg/mL (211-911); Vitamin D 25 Hydroxy Total 32.4 ng/mL (7.3-40.2)
[2024-09-04 08:52] LABS: Clarity,Urine Hazy (Clear/Hazy)
[2024-09-04 08:56] LABS: Ferritin 345 ng/mL (7.3-270.7)
[2024-09-04 09:01] LABS: Alanine Aminotransferase 10 U/L (10-49); Albumin, Serum 4.2 gm/dL (3.5-5.0); Albumin/Globulin Ratio 1.8 (1.2-2.2); Alkaline Phosphatase 89 U/L (46-116); Anion Gap 14 (7-16); Aspartate Amino Transferase 14 U/L (0-34); BUN/Creatinine Ratio 14 Ratio (12-20); Bilirubin,Total 0.7 mg/dL (0.3-1.2); Blood Urea Nitrogen 14 mg/dL (9-23); Calcium 8.7 mg/dL (8.3-10.6); Calcium (Corrected) 8.7 mg/dL (8.5-10.1); Carbon Dioxide 28.4 mMol/L (20.0-31.0); Cardiac Risk Estimate 2.5 RATIO (3.7-5.6); Chloride 105 mMol/L (98-107); Cholesterol 156 mg/dL (132-200); Globulin 2.3 gm/dL (2.3-3.5); Glucose 164 mg/dL (74-106); HDL Cholesterol 62 mg/dL (40-60); LDL Cholesterol,Calculated 74 mg/dL (0-130); Magnesium 1.4 mg/dL (1.6-2.6); Osmolality,Calculated 296 (275-295); Potassium 3.5 mMol/L (3.4-5.1); Sodium 147 mMol/L (136-145); Thyroid Stimulating Hormone 0.84 uIU/mL (0.55-4.78); Total Protein 6.5 gm/dL (5.7-8.2); Triglycerides 99 mg/dL (30-150); Uric Acid 5.6 mg/dL (3.1-7.8); eGFR > 60 See Note
== END | disposition home or self-care (01) ==
LOC: COPL 07:09
PROVIDERS: PCP Internal Medicine; Referring Provider Podiatrist; Visit Provider Radiology Diagnostic Radiology
DX: S92.401K Displaced unspecified fracture of right great toe, subsequent encounter for fracture with nonunion (principal); Z00.00 Encounter for general adult medical examination without abnormal findings; I10 Essential (primary) hypertension; E78.5 Hyperlipidemia, unspecified; E11.9 Type 2 diabetes mellitus without complications
CPT/HCPCS: 36415; 73630; 80053; 80061; 81001; 82306; 82570; 82607; 82728; 83036; 83735; 83970; 84443; 84550; 85025

== ENCOUNTER → 2024-10-24 | Outpatient (CLI) | payer OTHER, MEDICAID, SELFPAY ==
--- NOTE | 2024-10-24 | XR_ITS ---
Examination: Foot bilateral, 6 views Technique: AP, oblique, lateral views each foot total 6 views Date and time of exam: October 24, 2024 0721 hours INDICATIONS: Status post foot surgery FINDINGS: Prosthetic right first metatarsal head Fusion interphalangeal joint right first digit Satisfactory alignment Small plantar posterior bony calcaneal spurs Moderate osteoarthritis left first metatarsophalangeal joint No acute fracture Small plantar posterior bony calcaneal spurs IMPRESSION: Postsurgical changes right foot with satisfactory alignment
== END | disposition home or self-care (01) ==
LOC: CDIM 06:56
PROVIDERS: PCP Internal Medicine; Referring Provider Podiatrist; Visit Provider Podiatrist
DX: S92.402K Displaced unspecified fracture of left great toe, subsequent encounter for fracture with nonunion (principal); X58.XXXD Exposure to other specified factors, subsequent encounter
CPT/HCPCS: 73630

== ENCOUNTER 2024-11-07 07:53 | Outpatient (AMB) | payer MEDICAID, OTHER, SELFPAY ==
--- NOTE | 2024-11-07 08:01 | ORTHONT_ITS ---
Vital signs 11/07/24 08:10 Height 1.57 m Height Method Measured Weight 70.959 kg Weight Measurement Method Standing Scale BMI 28.8 BP 108/73 Blood Pressure Source Automatic Cuff Blood Pressure Location Left Upper Arm Position Sitting Respiration 18 Pulse 111 H Pulse Source Monitor Temp 97.1 F Temp Source Temporal Artery Scan Pulse Oximetry (%) 98 Oxygen Delivery Method Room Air Med/Allergies Allergies & Medications Allergies codeine Allergy (Severe, Verified 11/07/24 08:12) DIFF BREATHING hydrocodone bit Allergy (Severe, Verified 11/07/24 08:12) Rash Penicillins Allergy (Intermediate, Verified 11/07/24 08:12) HIVES, RASH vancomycin Allergy (Intermediate, Verified 11/07/24 08:12) Hives promethazine (From Phenergan) Allergy (Verified 11/07/24 08:12) ibuprofen Adverse Reaction (Intermediate, Verified 11/07/24 08:12) KIDNEY FAILURE Medication Reconciliation glipizide 5 mg tablet 5 mg PO QID 11/10/20 [History Confirmed 11/07/24] aspirin 81 mg tablet 81 mg PO QDAY 08/18/21 [History Confirmed 11/07/24] atorvastatin 40 mg tablet (Lipitor) 1 tab PO HS 08/18/21 [History Confirmed 11/07/24] cinacalcet 30 mg tablet (Sensipar) 1 tab PO QDAY 08/18/21 [History Confirmed 11/07/24] clonidine 0.3 mg/24 hr weekly transdermal patch See Rx Instructions .Route .COMPLEX 08/18/21 [History Confirmed 11/07/24] clonidine HCl 0.3 mg tablet 1 tab PO HS 08/18/21 [History Confirmed 11/07/24] insulin aspart U-100 100 unit/mL (3 mL) subcutaneous pen (Novolog FlexPen U-100 Insulin aspart) 14 unit subcut TID 08/18/21 [History Confirmed 11/07/24] insulin glargine 100 unit/mL (3 mL) subcutaneous pen (Lantus Solostar U-100 Insulin) See Rx Instructions .Route .COMPLEX 08/18/21 [History Confirmed 11/07/24] linaclotide 290 mcg capsule (Linzess) 1 cap PO QDAY PRN Constipation 08/18/21 [History Confirmed 11/07/24] mycophenolate sodium 180 mg tablet,delayed release (Myfortic) 1 tab PO BID 08/18/21 [History Confirmed 11/07/24] pantoprazole 40 mg granules delayed-release for susp in packet (Protonix) 40 mg PO HS 08/18/21 [History Confirmed 11/07/24] prednisone 5 mg tablet 1 tab PO QDAY 08/18/21 [History Confirmed 11/07/24] tacrolimus 0.5 mg capsule, immediate-release (Prograf) 5 mg PO BID 08/18/21 [History Confirmed 11/07/24] amlodipine 5 mg tablet 5 mg PO QDAY 02/22/22 [History Confirmed 11/07/24] carvedilol 25 mg tablet 25 mg PO DAILY PRN Hypertension 02/22/22 [History Confirmed 11/07/24] docusate sodium 100 mg capsule (Colace) 100 mg PO BID #60 caps 09/02/22 [Rx Confirmed 11/07/24] psyllium husk 3.4 gram oral powder packet (Metamucil Fiber (aspartame)) 1 packet PO BID #60 ea 09/02/22 [Rx Confirmed 11/07/24] Exam Exam Patient is in no acute distress and is cooperative with the examination today. Breathing is nonlabored. Patient has a normal mood and affect. Bilateral extremities were evaluated and demonstrates sensation intact to light touch. Palpable pedal pulses are present. No significant edema is present. Bilateral hips were examined. The patient has no pain with log roll of the hips. Internal rotation to 30 degrees and external rotation to 30 degrees is painless. Negative FADIR. Right knee was examined today. The right knee is in reasonable alignment. Range of motion from 0-120 degrees. Knee is stable to varus and valgus as well as AP translation with <5mm. Patient has a negative McMurrays. There is no pain with patellofemoral compression and no crepitus noted. The knee is nontender to palpation. Left knee was examined today. The left knee is in varus alignment. Range of motion from 0-115 degrees. Knee is stable to varus and valgus as well as AP translation with <5mm. Patient has a negative McMurrays. There is no pain with patellofemoral compression and no crepitus noted. The knee is tender to palpation medially. Nonweightbearing x-rays demonstrates mild arthritis and joint space narrowing bilaterally Assessment and Plan Problem List (1) Degenerative arthritis of knee, bilateral: Status: Acute Plan: Patient is a pleasant 54-year-old female with bilateral knee pain and bilateral knee arthritis. We discussed different treatment options. She would like a cortisone injection today Recommend knee cortisone injection as patient would like to proceed with conservative treatment at this time. The risks and benefits of the procedure were reviewed with the patient and patient gave verbal consent to continue with the procedure. Procedure: performed by Dr. Francis Using sterile technique the left knee was thoroughly prepped with alcohol, and approximately 1 cc of Depo-Medrol 80mg/mL and 4 cc of 0.2% ropivacaine was injected without resistance into the medial tibial femoral joint space. The patient tolerated the procedure. Recommend knee cortisone injection as patient would like to proceed with cons ervative treatment at this time. The risks and benefits of the procedure were reviewed with the patient and patient gave verbal consent to continue with the procedure. Procedure: performed by Dr. Francis Using sterile technique the Right knee was thoroughly prepped with alcohol, and approximately 1 cc of Depo-Medrol 80mg/mL and 4 cc of 0.2% ropivacaine was injected without resistance into the medial tibial femoral joint space. The patient tolerated the procedure. Office Procedures GNS Level of Care Nursing/Assessment Patient Status: Established Patient Nursing Assessment/Reassesment: Medication Reconciliation, Update PMH in EMR and Vital Signs Coordination of Care: Complex Care and Chronic Disease 1-5, Education Complex Pt/Fam, Consent,records obtained, informed consent, Results/Orders obtained and Staff clarify orders Established Patient Charge Established Patient Point Assignment: 95 Established Patient Point Charge: EP Level 3 (80-115) Surgical Proc/IM SQ injection Major Surgical Procedure: Yes (KNEE INJECTIONS) Medication Given Medication Given Medication Given: Yes Documented Dose Given: 2 Route: Infiitration Medication Given Medication Given Medication Given: Yes Documented Dose Given: 8 Route: Infiitration Office Meds methylprednisolone acetate 80 mg/mL suspension for injection Performing Provider: Christopher Francis MD Performing Location: [facility] Administered by: Christopher Francis MD on 11/07/24 08:06 Dose Route Admin Location Dispensed Lot Number Expiration Date [employer] Volunteer Specialist 80 mg intra-articular KNEE 1 mL [id number] 09/07/26 [address]-3 [facility] ropivacaine (PF) 2 mg/mL (0.2 %) injection solution Performing Provider: Christopher Francis MD Performing Location: [facility] Administered by: Christopher Francis MD on 11/07/24 08:06 Dose Route Admin Location Dispensed Lot Number Expiration Date [facility] Volunteer Specialist 20 mL Infiltration KNEE 20 mL [id number] 02/07/26 85686-697-52 [facility] Intake Visit Data Collection New Patient or Established: Established Patient (seen at [facility] within 3 years) Reason for Visit:: BL KNEE PAIN/INJECTIONS Seen by Clinical Staff ONLY (RN/MA): No Sales Department Supervisor Required: No PCP or OBGYN visit in last 3 months: Yes Hx Now: No Do You Feel Safe at Home: Yes Authorities Contacted: N/A Questionairres Past Medical History Past Medical History Have you ever been diagnosed with any of the following: Neurological Problems Cerebrovascular Accident (CVA): Yes Seizures: No Subdural Hematoma: Yes Head Trauma: Yes Cardiology Problems Hypercholesterolemia: Yes Congestive Heart Failure: Yes Edema: No Cellulitis: No Hypertension: Yes Varicose Veins: No Respiratory Problems Chronic Obstructive Pulmonary Disease (COPD): No Asthma: No Tuberculosis: No Pulmonary Embolism: No Sleep Apnea: No Smoking: No Smoking Exposure: No Stomache/Intestinal Problems Hepatitis: No Obesity: Yes Genital/Urinary Problems Renal Disease: Yes (HAD KIDNEY TRANSPLANT) Dialysis: Yes Reproductive Problems Previous Pregnancies: Yes Musculoskeletal Problems Arthritis: Yes Endocrine Problems Diabetes Mellitus Type 1: No Diabetes Mellitus Type 2: Yes Blood Problems Sickle Cell Disease: No Clotting Problems: Yes (BLOOD CLOTS RIGHT LEG HOSP 08/29) Other Problems Hospitalization: Yes Shingles: No Falls: No Blood Transfusions: No Blood Transfusion Reaction: No Anesthesia Reactions: No Organ Transplant: Yes Chemotherapy: No Radiation Therapy: No MRSA: No Chicken Pox: Yes Measles: No Mumps: No Cancer: No Surgical History Hysterectomy: Yes (GENA WITH LUI SALPING) Pacemaker: No Subjective Visit Visit for: follow up visit and knee Immunization / Flu Flu Vaccine in the Last 12 Months: No Flu Vaccine Exclusion Criteria: No Exclusion Criteria History of Present Illness Chief complaint: F/U 3 MONTH KNEE INJECTION Patient is a 54-year-old female with bilateral knee pain worse on the left. This been ongoing for 2 years but has been worse in the last 2 months. She does have a history of a kidney transplant and is on immunosuppressants. She reports the left knee pain is worse and is starting to affect her. She had an injection recently reports that this has helped tremendously. Injection is worn off and she would like another 1 today Pain Pain level (0-10): 8 Pain duration: CONSTANT Pain location: inside (medial), outside (lateral), anterior and posterior Pain quality: sharp, dull and aching Pain timing: increases with activity Ambulatory data Ambulatory device: none Treatments Number of previous injections: 2 Improvement with previous injections: Yes Number of Physical Therapy sessions: 0 Improvement with PT: No Improvement with NSAIDS: no Review of Systems Review of Systems: All systems negative unless otherwise noted in HPI.
[2024-11-07 08:10] VITALS: BP 108/73; PULSE 111; RESP 18; TEMP 36.2; O2SAT 98; BMI 28.8
== END 2024-11-07 08:31 | disposition home or self-care (01) ==
PROVIDERS: PCP Internal Medicine; Referring Provider Internal Medicine; Supervising Provider Orthopaedic Surgery Adult Reconstructive Orthopaedic Surgery; Visit Provider Orthopaedic Surgery Adult Reconstructive Orthopaedic Surgery
DX: M17.0 Bilateral primary osteoarthritis of knee (principal); M25.562 Pain in left knee; M25.561 Pain in right knee; I10 Essential (primary) hypertension; E78.00 Pure hypercholesterolemia, unspecified; E11.9 Type 2 diabetes mellitus without complications; E66.9 Obesity, unspecified; Z68.28 Body mass index [BMI] 28.0-28.9, adult
CPT/HCPCS: 20610; 99213; J1010; J2795; G0463

== ENCOUNTER → 2024-12-10 | Outpatient (BNVA) | payer OTHER, MEDICAID, SELFPAY | END | disposition home or self-care (01) | PROVIDERS: PCP Internal Medicine; Referring Provider Internal Medicine; Visit Provider Urology | DX: R80.9 Proteinuria, unspecified (principal); Z94.0 Kidney transplant status; E11.9 Type 2 diabetes mellitus without complications; I10 Essential (primary) hypertension; E66.9 Obesity, unspecified; Z68.28 Body mass index [BMI] 28.0-28.9, adult; Z86.73 Personal history of transient ischemic attack (TIA), and cerebral infarction without residual deficits; E78.00 Pure hypercholesterolemia, unspecified | CPT/HCPCS: 81003; 99212; G0463 ==

== ENCOUNTER → 2025-01-31 | Outpatient (CLI) | payer OTHER, MEDICAID, SELFPAY ==
--- NOTE | 2025-01-31 | XR_ITS ---
Examination: Foot, right, 3 views Technique: AP, oblique, lateral views foot, 3 views Date and time of exam: January 31, 2025, 0904 hours, comparison October 24, 2024 INDICATIONS: Status post surgery first digit October 24, 2024 FINDINGS: Prosthetic right first metatarsal head Fusion interphalangeal joint first digit Orthopedic hardware in satisfactory position Severe osteopenia Soft tissue vascular calcification IMPRESSION: Status post surgery first metatarsal and first digit with satisfactory alignment
== END | disposition home or self-care (01) ==
PROVIDERS: PCP Internal Medicine; Referring Provider Podiatrist; Visit Provider Podiatrist
DX: M19.171 Post-traumatic osteoarthritis, right ankle and foot (principal); Z98.890 Other specified postprocedural states
CPT/HCPCS: 73630

== ENCOUNTER 2025-02-07 08:01 | Outpatient (AMB) | payer OTHER, MEDICAID, SELFPAY ==
[2025-02-07 08:20] VITALS: BP 172/81; PULSE 93; RESP 18; TEMP 35.9; O2SAT 98; BMI 28.3
--- NOTE | 2025-02-07 08:20 | ORTHONT_ITS ---
Vital signs 02/07/25 08:20 Height 1.57 m Height Method Measured Weight 69.967 kg Weight Measurement Method Standing Scale BMI 28.3 BP 172/81 H Blood Pressure Source Automatic Cuff Blood Pressure Location Left Upper Arm Position Sitting Respiration 18 Pulse 93 Pulse Source Monitor Temp 96.7 F L Temp Source Temporal Artery Scan Pulse Oximetry (%) 98 Oxygen Delivery Method Room Air Med/Allergies Allergies & Medications Allergies codeine Allergy (Severe, Verified 02/07/25 08:22) DIFF BREATHING hydrocodone bit Allergy (Severe, Verified 02/07/25 08:22) Rash Penicillins Allergy (Intermediate, Verified 02/07/25 08:22) HIVES, RASH vancomycin Allergy (Intermediate, Verified 02/07/25 08:22) Hives promethazine (From Phenergan) Allergy (Verified 02/07/25 08:22) ibuprofen Adverse Reaction (Intermediate, Verified 02/07/25 08:22) KIDNEY FAILURE Medication Reconciliation glipizide 5 mg tablet 5 mg PO QID 11/10/20 [History Confirmed 02/07/25] aspirin 81 mg tablet 81 mg PO QDAY 08/18/21 [History Confirmed 02/07/25] atorvastatin 40 mg tablet (Lipitor) 1 tab PO HS 08/18/21 [History Confirmed 02/07/25] cinacalcet 30 mg tablet (Sensipar) 1 tab PO QDAY 08/18/21 [History Confirmed 02/07/25] clonidine 0.3 mg/24 hr weekly transdermal patch See Rx Instructions .Route .COMPLEX 08/18/21 [History Confirmed 02/07/25] clonidine HCl 0.3 mg tablet 1 tab PO HS 08/18/21 [History Confirmed 02/07/25] insulin aspart U-100 100 unit/mL (3 mL) subcutaneous pen (Novolog FlexPen U-100 Insulin aspart) 14 unit subcut TID 08/18/21 [History Confirmed 02/07/25] insulin glargine 100 unit/mL (3 mL) subcutaneous pen (Lantus Solostar U-100 Insulin) See Rx Instructions .Route .COMPLEX 08/18/21 [History Confirmed 02/07/25] linaclotide 290 mcg capsule (Linzess) 1 cap PO QDAY PRN Constipation 08/18/21 [History Confirmed 02/07/25] mycophenolate sodium 180 mg tablet,delayed release (Myfortic) 1 tab PO BID 08/18/21 [History Confirmed 02/07/25] pantoprazole 40 mg granules delayed-release for susp in packet (Protonix) 40 mg PO HS 08/18/21 [History Confirmed 02/07/25] prednisone 5 mg tablet 1 tab PO QDAY 08/18/21 [History Confirmed 02/07/25] tacrolimus 0.5 mg capsule, immediate-release (Prograf) 5 mg PO BID 08/18/21 [History Confirmed 02/07/25] amlodipine 5 mg tablet 5 mg PO QDAY 02/22/22 [History Confirmed 02/07/25] carvedilol 25 mg tablet 25 mg PO DAILY PRN Hypertension 02/22/22 [History Confirmed 02/07/25] docusate sodium 100 mg capsule (Colace) 100 mg PO BID #60 caps 09/02/22 [Rx Confirmed 02/07/25] psyllium husk 3.4 gram oral powder packet (Metamucil Fiber (aspartame)) 1 packet PO BID #60 ea 09/02/22 [Rx Confirmed 02/07/25] Exam Exam Patient is in no acute distress and is cooperative with the examination today. Breathing is nonlabored. Patient has a normal mood and affect. Bilateral extremities were evaluated and demonstrates sensation intact to light touch. Palpable pedal pulses are present. No significant edema is present. Bilateral hips were examined. The patient has no pain with log roll of the hips. Internal rotation to 30 degrees and external rotation to 30 degrees is painless. Negative FADIR. Right knee was examined today. The right knee is in reasonable alignment. Range of motion from 0-120 degrees. Knee is stable to varus and valgus as well as AP translation with <5mm. Patient has a negative McMurrays. There is no pain with patellofemoral compression and no crepitus noted. The knee is nontender to palpation. Left knee was examined today. The left knee is in varus alignment. Range of motion from 0-115 degrees. Knee is stable to varus and valgus as well as AP translation with <5mm. Patient has a negative McMurrays. There is no pain with patellofemoral compression and no crepitus noted. The knee is tender to palpation medially. Nonweightbearing x-rays demonstrates mild arthritis and joint space narrowing bilaterally Assessment and Plan Problem List (1) Degenerative arthritis of knee, bilateral: Status: Acute Plan: Patient is a pleasant 54-year-old female with bilateral knee pain and bilateral knee arthritis. We discussed different treatment options. She would like a cortisone injection today Recommend knee cortisone injection as patient would like to proceed with conservative treatment at this time. The risks and benefits of the procedure were reviewed with the patient and patient gave verbal consent to continue with the procedure. Procedure: performed by Dr. Francis Using sterile technique the left knee was thoroughly prepped with alcohol, and approximately 1 cc of Depo-Medrol 80mg/mL and 4 cc of 0.2% ropivacaine was injected without resistance into the medial tibial femoral joint space. The patient tolerated the procedure. Recommend knee cortisone injection as patient would like to proceed with con servative treatment at this time. The risks and benefits of the procedure were reviewed with the patient and patient gave verbal consent to continue with the procedure. Procedure: performed by Dr. Francis Using sterile technique the Right knee was thoroughly prepped with alcohol, and approximately 1 cc of Depo-Medrol 80mg/mL and 4 cc of 0.2% ropivacaine was injected without resistance into the medial tibial femoral joint space. The patient tolerated the procedure. Office Procedures GNS Level of Care Nursing/Assessment Patient Status: Established Patient Nursing Assessment/Reassesment: Medication Reconciliation, Update PMH in EMR and Vital Signs Coordination of Care: Complex Care and Chronic Disease 1-5, Education Complex Pt/Fam, Consent,records obtained, informed consent, Results/Orders obtained and Staff clarify orders Established Patient Charge Established Patient Point Assignment: 95 Established Patient Point Charge: EP Level 3 (80-115) Surgical Proc/IM SQ injection Minor Surgical Procedure: Yes (KNEE INJECTION ) Medication Given Medication Given Medication Given: Yes Documented Dose Given: 2 Route: Infiitration Medication Given Medication Given Medication Given: Yes Documented Dose Given: 8 Route: Infiitration Office Meds methylprednisolone acetate 80 mg/mL suspension for injection Performing Provider: Christopher Francis MD Performing Location: [facility] Administered by: Christopher Francis MD on 02/07/25 08:46 Dose Route Admin Location Dispensed Lot Number Expiration Date Pack age [facility] Executive Advisor 160 mg intra-articular KNEE 2 mL [id number] 10/07/26 [address]-5 7 [id number] [employer] ropivacaine (PF) 2 mg/mL (0.2 %) injection solution Performing Provider: Christopher Francis MD Performing Location: [facility] Administered by: Christopher Francis MD on 02/07/25 08:46 Dose Route Admin Location Dispensed Lot Number Expiration Date Pack age [facility] [employer] Executive Advisor 40 mL Infiltration KNEE 40 mL [id number] 05/09/27 13249-287-28 [id number] [facility] Intake Visit Data Collection New Patient or Established: Established Patient (seen at [facility] within 3 years) Reason for Visit:: BL KNEE PAIN/INJECTIONS Seen by Clinical Staff ONLY (RN/MA): No [employer] French Teacher Required: No PCP or OBGYN visit in last 3 months: Yes Hx Now: No Do You Feel Safe at Home: Yes Authorities Contacted: N/A Questionairres Past Medical History Past Medical History Have you ever been diagnosed with any of the following: Neurological Problems Cerebrovascular Accident (CVA): Yes Seizures: No Subdural Hematoma: Yes Head Trauma: Yes Cardiology Problems Hypercholesterolemia: Yes Congestive Heart Failure: Yes Edema: No Cellulitis: No Hypertension: Yes Varicose Veins: No Respiratory Problems Chronic Obstructive Pulmonary Disease (COPD): No Asthma: No Tuberculosis: No Pulmonary Embolism: No Sleep Apnea: No Smoking: No Smoking Exposure: No Stomache/Intestinal Problems Hepatitis: No Obesity: Yes Genital/Urinary Problems Renal Disease: Yes (HAD KIDNEY TRANSPLANT) Dialysis: Yes Reproductive Problems Previous Pregnancies: Yes Musculoskeletal Problems Arthritis: Yes Endocrine Problems Diabetes Mellitus Type 1: No Diabetes Mellitus Type 2: Yes Blood Problems Sickle Cell Disease: No Clotting Problems: Yes (BLOOD CLOTS RIGHT LEG HOSP 08/29) Other Problems Hospitalization: Yes Shingles: No Falls: No Blood Transfusions: No Blood Transfusion Reaction: No Anesthesia Reactions: No Organ Transplant: Yes Chemotherapy: No Radiation Therapy: No MRSA: No Chicken Pox: Yes Measles: No Mumps: No Cancer: No Surgical History Hysterectomy: Yes (GENA WITH LUI SALPING) Pacemaker: No Subjective Visit Visit for: follow up visit, knee and injections (BILATERAL) Immunization / Flu Flu Vaccine in the Last 12 Months: No Flu Vaccine Exclusion Criteria: No Exclusion Criteria History of Present Illness Chief complaint: 3MTH BL KNEE INJ Patient is a 54-year-old female with bilateral knee pain worse on the left. This been ongoing for 2 years but has been worse in the last 2 months. She does have a history of a kidney transplant and is on immunosuppressants. She reports the left knee pain is worse and is starting to affect her. She had an injection recently reports that this has helped tremendously. Injection is worn off and she would like another 1 today Personal History Red flag PMH: none Pain Pain level (0-10): 8 Pain duration: CONSTANT Pain location: inside (medial), outside (lateral), anterior and posterior Pain quality: sharp, dull and aching Pain timing: increases with activity Ambulatory data Ambulatory device: none Treatments Number of previous injections: 2 Improvement with previous injections: Yes Number of Physical Therapy sessions: 0 Improvement with PT: No Improvement with NSAIDS: no Review of Systems Review of Systems: All systems negative unless otherwise noted in HPI.
== END 2025-02-07 08:47 | disposition home or self-care (01) ==
LOC: HODSRG 08:01
PROVIDERS: PCP Internal Medicine; Referring Provider Internal Medicine; Supervising Provider Orthopaedic Surgery Adult Reconstructive Orthopaedic Surgery; Visit Provider Orthopaedic Surgery Adult Reconstructive Orthopaedic Surgery
DX: M25.562 Pain in left knee (principal); M25.561 Pain in right knee; M17.0 Bilateral primary osteoarthritis of knee; Z94.0 Kidney transplant status; I10 Essential (primary) hypertension; E11.9 Type 2 diabetes mellitus without complications; Z79.4 Long term (current) use of insulin; Z79.84 Long term (current) use of oral hypoglycemic drugs
CPT/HCPCS: 20610; 99213; J1010; J2795; G0463

== ENCOUNTER 2025-02-10 09:35 | Outpatient (RCR) | payer OTHER, MEDICAID, SELFPAY | END 2025-03-09 23:59 | disposition home or self-care (01) | LOC: SCTC 09:35 | PROVIDERS: PCP Internal Medicine; Referring Provider Internal Medicine; Visit Provider Nurse Practitioner Family | DX: D72.821 Monocytosis (symptomatic) (principal); D72.820 Lymphocytosis (symptomatic); Z90.81 Acquired absence of spleen; Z94.0 Kidney transplant status; Z86.718 Personal history of other venous thrombosis and embolism; E11.9 Type 2 diabetes mellitus without complications | CPT/HCPCS: 99212; G0463 ==

== ENCOUNTER → 2025-02-17 | Outpatient (CLI) | payer OTHER, MEDICAID, SELFPAY ==
--- NOTE | 2025-02-17 | XR_ITS ---
Examination: Foot, right, 3 views Technique: AP, oblique, lateral views foot, 3 views Date and time of exam: February 17, 2025, 0754 hours, comparison January 31, 2025 INDICATIONS: Post surgery first digit FINDINGS: Prosthetic right first metatarsal head satisfactory position Fusion interphalangeal joint with satisfactory position orthopedic hardware Prominent osteopenia IMPRESSION: Postsurgical changes first digit with satisfactory alignment
[2025-02-17 07:56] LABS: Collection Type, Urine Clean Catch
[2025-02-17 08:40] LABS: Basophils # (Auto) 0.1 Thou/mm3 (0.0-0.2); Basophils % (Auto) 1 % (0-2.5); Eosinophils # (Auto) 0.1 Thou/mm3 (0.0-0.5); Eosinophils % (Auto) 1 % (0-10); Hematocrit 43.5 % (36.0-46.0); Hemoglobin 14.1 g/dL (12.0-16.0); Immature Granulocytes Auto 0.14 Thou/mm3 (0.00-0.00); Lymphocytes # (Auto) 4.5 Thou/mm3 (1.0-4.8); Lymphocytes % (Auto) 30 % (10-50); Mean Corpuscular HGB Conc 32.4 g/dl (31.0-37.0); Mean Corpuscular Hemoglobin 31.3 pg (25.0-35.0); Mean Corpuscular Volume 97 fL (80-100); Monocytes # (Auto) 1.0 Thou/mm3 (0.0-0.8); Monocytes % (Auto) 6 % (0-12); Neutrophils # (Auto) 9.4 Thou/mm3 (1.8-7.7); Neutrophils % (Auto) 62 % (37-80); Nucleated Red Blood Cell # 0.00 Thou/mm3 (0.00-0.00); Nucleated Red Blood Cell % 0 /100 WBC (0); Platelet Count 281 Thou/mm3 (140-440); RDW Standard Deviation 50.5 fL (36.4-46.3); Red Blood Count 4.50 Miln/mm3 (4.00-5.20); White Blood Count 15.2 Thou/mm3 (3.6-11.0)
[2025-02-17 08:49] LABS: Bilirubin,Urine Negative (Negative); Blood,Urine Negative (Negative); Clarity,Urine Clear (Clear/Hazy); Color,Urine Lt-Yellow (Lt Yel-Yel); Glucose, Urine Negative (Negative); Ketones,Urine Negative (Negative); Leukocyte Esterase,Urine Negative (Negative); Nitrite,Urine Negative (Negative); PH,Urine 6.5 (5.0-7.0); Protein,Urine Negative (Neg - Trace); RBC,Urine 1 /hpf (0-3); Specific Gravity,Urine 1.015 (1.001-1.035); Squamous Epithelial Cell,Urine 1 /hpf (0-5); Urobilinogen,Urine Negative mg/dL (0.0-1.0); WBC,Urine 2 /hpf (0-5)
[2025-02-17 08:53] LABS: Glucose Estimated Average 151 mg/dL (80-131); Hemoglobin A1C 6.9 % Hgb (4.8-6.0)
[2025-02-17 08:54] LABS: Parathyroid Hormone Intact 84.0 pg/ml (18.5-88.0)
[2025-02-17 09:00] LABS: Alanine Aminotransferase 16 U/L (10-49); Albumin, Serum 4.2 gm/dL (3.5-5.0); Albumin/Globulin Ratio 2.2 (1.2-2.2); Alkaline Phosphatase 94 U/L (46-116); Anion Gap 12 (7-16); Aspartate Amino Transferase 17 U/L (0-34); BUN/Creatinine Ratio 16 Ratio (12-20); Bilirubin,Total 0.7 mg/dL (0.3-1.2); Blood Urea Nitrogen 13 mg/dL (9-23); Calcium 8.9 mg/dL (8.3-10.6); Calcium (Corrected) 8.9 mg/dL (8.5-10.1); Carbon Dioxide 30.4 mMol/L (20.0-31.0); Cardiac Risk Estimate 2.5 RATIO (3.7-5.6); Chloride 104 mMol/L (98-107); Cholesterol 156 mg/dL (132-200); Creatinine (Component) 0.8 mg/dL (0.6-1.3); Globulin 1.9 gm/dL (2.3-3.5); Glucose 231 mg/dL (74-106); HDL Cholesterol 63 mg/dL (40-60); LDL Cholesterol,Calculated 67 mg/dL (0-130); Magnesium 1.3 mg/dL (1.6-2.6); Osmolality,Calculated 297 (275-295); Potassium 3.4 mMol/L (3.4-5.1); Sodium 146 mMol/L (136-145); Thyroid Stimulating Hormone 0.61 uIU/mL (0.55-4.78); Total Protein 6.1 gm/dL (5.7-8.2); Triglycerides 130 mg/dL (30-150); Uric Acid 5.9 mg/dL (3.1-7.8); eGFR > 60 See Note
[2025-02-17 09:02] LABS: Vitamin B12 663 pg/mL (211-911); Vitamin D 25 Hydroxy Total 21.6 ng/mL (7.3-40.2)
[2025-02-17 09:10] LABS: Ferritin 363 ng/mL (7.3-270.7)
[2025-02-17 09:38] LABS: Creatinine MALB Rnd Ur 64 mg/dL (30-125); Microalbumin Creat Ratio 25 mg/gCrea (<30); Microalbumin, Random Urine 16 mg/L (0-300)
== END | disposition home or self-care (01) ==
PROVIDERS: Nurse Practitioner Family; PCP Internal Medicine; Referring Provider Podiatrist; Visit Provider Radiology Diagnostic Radiology
DX: Z47.89 Encounter for other orthopedic aftercare (principal); Z00.00 Encounter for general adult medical examination without abnormal findings; I10 Essential (primary) hypertension; E78.5 Hyperlipidemia, unspecified; E11.9 Type 2 diabetes mellitus without complications; I82.402 Acute embolism and thrombosis of unspecified deep veins of left lower extremity
CPT/HCPCS: 36415; 73630; 80053; 80061; 81001; 82043; 82306; 82570; 82607; 82728; 83036; 83735; 83970; 84443; 84550; 85025